=== PATIENT | female | born 1995 | race Caucasian/White ===

== ENCOUNTER 2020-10-10 21:23 | Emergency (ER) | payer OTHER, SELFPAY ==
[2020-10-10 21:26] VITALS: BP 137/82; PULSE 79; RESP 16; TEMP 36.2; O2SAT 100
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
[2020-10-10 22:51] VITALS: BP 124/68; PULSE 82; RESP 16; O2SAT 99
== END 2020-10-10 22:55 | disposition home or self-care (01) ==
PROVIDERS: Emergency Provider Emergency Medicine
DX: O99.891 Other specified diseases and conditions complicating pregnancy (principal); Z77.098 Contact with and (suspected) exposure to other hazardous, chiefly nonmedicinal, chemicals; Z3A.01 Less than 8 weeks gestation of pregnancy
CPT/HCPCS: 81025; 99283

== ENCOUNTER 2020-11-09 11:02 | Outpatient (CLI) | payer OTHER, SELFPAY ==
--- NOTE | ~2020-11-09 | US_ITS ---
EXAMINATION: US thyroid DATE: 11/09/2020 12:10 INDICATION: Nontoxic single thyroid nodule. TECHNIQUE: Multiple ultrasound images of the thyroid were obtained. COMPARISON: None. FINDINGS: The right thyroid lobe measures 5.0 x 1.4 x 1.5 cm. The left thyroid lobe measures 4.9 x 1.4 x 1.5 c m. There are nodules in the thyroid measuring up to 3 mm. IMPRESSION: 1. Small thyroid nodules, likely not clinically significant. No follow-up is needed. Reviewed, dictated and finalized at location A. IMPRESSION: 1. Small thyroid nodules, likely not clinically significant. No follow-up is ne eded.
== END 2020-11-09 11:03 | disposition home or self-care (01) ==
PROVIDERS: PCP Advanced Practice Midwife; Visit Provider Advanced Practice Midwife
DX: E04.1 Nontoxic single thyroid nodule (principal)
CPT/HCPCS: 76536

== ENCOUNTER 2021-05-17 09:54 | Observation (INO) | payer OTHER, SELFPAY ==
--- NOTE | ~2021-05-17 | US_ITS ---
EXAMINATION: US OB limited DATE: 05/17/2021 11:32 INDICATION: Leaking fluids during third trimester of TECHNIQUE: Real-time ultrasound of the pelvis was performed. The interpreting radiologist was not pre sent for the study. COMPARISON: None. FINDINGS: There is a single living fetus in vertex presentation. The placenta is anterior. heart rate is 137 beats per minute (bpm). The amniotic fluid index is 10.1 cm, which is normal (5th%-95%: 7.7-24.9 cm at 37 weeks estimated gestational age). IMPRESSION: 1. Single living fetus in vertex presentation with heart rate of 137 bpm. 2. Normal amniotic fluid index of 10.1 cm. Reviewed, dictated and finalized at location A. RAFT MAINTENANCE TECHNICIAN IMPRESSION: 1. Single living fetus in vertex presentation with heart rate of 137 bpm . 2. Normal amniotic fluid index of 10.1 cm.
--- NOTE | 2021-05-17 11:55 | PC.NURSE ---
1145- Spoke to Dr. Pulido, orders to discharge to home
--- NOTE | 2021-05-17 12:00 | OBADM ---
This patient, Hetal Abbott, admitted to the OB room Labor/Delivery/Recovery 106 for observation. Patient/family oriented to hospital policies and general routines including ID bracelet, bed and alarms, visiting hours, pain management, procedures, bathroom and other care routines, personal items, smoking policy, room service/diet, and visiting hours. Patient/Family are encouraged to report perceived risks to care and to ask questions if they do not understand what they are told or what they should do.
--- NOTE | 2021-05-19 18:16 | PM.OBTRLD ---
OB - Triage/Final Diagnosis Visit Information Comments/Additional reasons for admission: I have assessed the risk for this patient, Hetal Abbott, and determined that she would benefit from observation care. Final Diagnosis (1) Vaginal discharge during : Code(s): O26.899 - Other specified related conditions, unspecified trimester; N89.8 - Other specified noninflammatory disorders of vagina Status: Acute
== END 2021-05-17 11:55 | disposition home or self-care (01) ==
PROVIDERS: Admitting Provider Obstetrics & Gynecology; Visit Provider Obstetrics & Gynecology
DX: O26.899 Other specified pregnancy related conditions, unspecified trimester (principal); N89.8 Other specified noninflammatory disorders of vagina; Z3A.00 Weeks of gestation of pregnancy not specified
CPT/HCPCS: 76815; G0378; G0379

== ENCOUNTER 2021-05-19 17:52 | Observation (INO) | payer OTHER, SELFPAY ==
--- NOTE | ~2021-05-19 | US_ITS ---
EXAMINATION: US OB limited w BPP DATE: 05/19/2021 19:08 INDICATION: Amniotic fluid index assessment during third trimester TECHNIQUE: Real-time pelvic ultrasound was performed. The interpreting radiologist was not present fo r the study. COMPARISON: None. FINDINGS: There is a single living fetus in vertex presentation. The placenta is anterior. heart rate is 138 beats per minute (bpm). The amniotic fluid index is 11.5 cm which is normal Biophysical profile performed by the technologist: breathing (30 sec sustained breathing in 30 minutes): 2 out of 2 movement (3 gross body movements in 30 minutes): 2 out of 2 tone (one episode of iifqphh-nfouwgmmo-ymbkyzm limb movement): 2 out of 2 Amniotic fluid pocket (2 cm): 2 out of 2 Total score: 8 out of 8 IMPRESSION: 1. Single living fetus in vertex presentation. 2. Biophysical profile 8 out of 8. 3. Normal amniotic fluid index. Reviewed, dictated and finalized at location F. IED MATHEMATICIAN
[2021-05-19 19:35] VITALS: BP 110/65; PULSE 63
[2021-05-19 21:31] VITALS: BMI 27.1
--- NOTE | 2021-05-19 21:33 | OBADM ---
This patient, Hetal Abbott, admitted to the OB room Labor/Delivery/Recovery 105 for observation. Patient/family oriented to hospital policies and general routines including ID bracelet, bed and alarms, visiting hours, pain management, procedures, bathroom and other care routines, personal items, smoking policy, room service/diet, and visiting hours. Patient/Family are encouraged to report perceived risks to care and to ask questions if they do not understand what they are told or what they should do.
== END 2021-05-19 20:36 | disposition home or self-care (01) ==
PROVIDERS: Admitting Provider Obstetrics & Gynecology; Visit Provider Obstetrics & Gynecology
DX: O26.899 Other specified pregnancy related conditions, unspecified trimester (principal); N89.8 Other specified noninflammatory disorders of vagina; Z3A.00 Weeks of gestation of pregnancy not specified
CPT/HCPCS: 76815; 76819; G0378; G0379

== ENCOUNTER 2021-06-01 06:01 | Inpatient (IN) | payer OTHER, SELFPAY ==
[2021-06-01] VITALS (171 sets, daily range): BP systolic 84–121; BP diastolic 41–82; PULSE 51–187; RESP 16; TEMP 36.6–39.6; O2SAT 85–100; BMI 27.5
--- NOTE | 2021-06-01 06:01 | LDADM ---
This patient, Hetal Abbott, was admitted to Labor/Delivery/Recovery 105 on 06/01/21 at 06:01. Plans for labor, pain management and were discussed with patient. Patient/family oriented to hospital policies and general routines including ID bracelet, bed and alarms, visiting hours, pain management, procedures, bathroom and other care routines, personal items, smoking policy, room service/diet and guest tray routines, infant security routines, and visiting hours. Patient/Family are encouraged to report perceived risks to care and to ask questions if they do not understand what they are told or what they should do. See OBIX for further documentation.
[2021-06-01 06:49] LABS: Basophils Percent Auto 0.3 % (0.2-1.2); Eosinophils Absolute Auto 0.1 K/mm3 (0-0.3); Eosinophils Percent Auto 0.8 % (0-4.4); Hematocrit 32.5 % (37.0-47.0); Hemoglobin 11.2 g/dL (12.0-15.0); Immature Granulocyte Absolute 0.02 K/mm3 (0.00-0.031); Immature Granulocyte Percent A 0.3 % (0-0.5); Lymphocytes Absolute Auto 0.91 K/mm3 (0.9-3.2); Lymphocytes Percent Auto 14.5 % (18.3-44.2); Mean Corpuscular HGB Conc 34.5 g/dl (32-36); Mean Corpuscular Hemoglobin 34.8 pg (26-34); Mean Corpuscular Volume 100.9 fl (80-100); Mean Platelet Volume 10.4 fl (7.4-10.4); Monocytes Absolute Auto 0.5 K/mm3 (0.1-0.6); Monocytes Percent Auto 7.5 % (2.6-8.5); Neutrophils Absolute Auto 4.8 K/mm3 (1.3-6.7); Neutrophils Percent Auto 76.6 % (45.5-73.1); Platelet Count Result 106 k/mm3 (150-375); Red Blood Count 3.22 M/mm3 (4.2-5.4); Red Cell Distribution Width 13.3 % (11.5-14.5); White Blood Count 6.3 K/mm3 (4.5-10.0)
[2021-06-01] MEDS: OXYTOCIN 30 UNITS/NS 500 ML 30 UNITS/500 ML BAG IV CONT (06:49)
[2021-06-01] MEDS: LACTATED RINGERS 1,000 ML 125 ML IV CONT ×4 (06:50→15:25)
--- NOTE | 2021-06-01 07:57 | P.PNAN_ITS ---
Anes - Eval Pre Procedure Procedure: Labor epidural Date/Time: 06/01/21 07:57 Surgeon: Cuong Preop Diagnosis: Abd pain with contractions Pre Op Diagnosis: iol Patient Data Age: 25 Gender: F Height: 1.6 m Weight: 70.5 kg Last Vital Signs Pulse 78 06/01/21 07:45 BP 105/69 06/01/21 07:45 Allergies Allergy/AdvReac Type Severity Reaction Status Date / Time No Known Allergies Allergy Verified 05/31/21 12:45 Home Medications Medication Instructions Recorded Confirmed Type No Home Medications 10/10/20 05/31/21 History Laboratory Tests 06/01/21 06/01/21 06:40 06:40 WBC 6.3 K/mm3 K/mm3 (4.5-10.0) RBC 3.22 M/mm3 L M/mm3 (4.2-5.4) Hgb 11.2 g/dL L g/dL (12.0-15.0) Hct 32.5 % L % (37.0-47.0) MCV 100.9 fl H fl (80-100) MCH 34.8 pg H pg (26-34) MCHC 34.5 g/dl g/dl (32-36) RDW 13.3 % % (11.5-14.5) Plt Count 106 k/mm3 L k/mm3 (150-375) MPV 10.4 fl fl (7.4-10.4) Immature Gran % (Auto) 0.3 % % (0-0.5) Neut % (Auto) 76.6 % H % (45.5-73.1) Lymph % (Auto) 14.5 % L % (18.3-44.2) Monroe % (Auto) 7.5 % % (2.6-8.5) Eos % (Auto) 0.8 % % (0-4.4) Baso % (Auto) 0.3 % % (0.2-1.2) Lymph # (Auto) 0.91 K/mm3 K/mm3 (0.9-3.2) Monroe # (Auto) 0.5 K/mm3 K/mm3 (0.1-0.6) Eos # (Auto) 0.1 K/mm3 K/mm3 (0-0.3) Baso # (Auto) 0.0 K/mm3 K/mm3 (0.0-0.1) Abs Immat Gran (auto) 0.02 K/mm3 K/mm3 (0.00-0.031) Absolute Neuts (auto) 4.8 K/mm3 K/mm3 (1.3-6.7) Absolute Nucleated RBC 0.0 K/mm3 K/mm3 (0.0-0.012) Nucleated RBC % 0.0 % % (0.0-0.2) RPR Pending Patient hx anesthesia problems: none Family hx anesthesia problems: none Results Review: All pre-operative results and documents have been reviewed as part of the pre-operative evaluation. [facility] Past Medical History Medical History Healthy female adult Overweight (BMI 25.0-29.9) Surgical History Surgical History No pertinent past surgical history Family History Family History Other No pertinent family history Social History Social History Smoking status: Current some day smoker Tobacco type: e-cigarettes/vaping Second hand tobacco smoke exposure: Yes Alcohol intake: never Substance use: never Gender identity (if verbalized by the patient): Female Sexual Orientation (if Verbalized by the Patient): Straight or Heterosexual Spiritual care concerns: No Exam Day of Procedure 06/01/21 07:57 Patient weight: overweight Airway: Mallampati scale class II Neurological: alert
[2021-06-01 14:25] LABS: Rapid Plasma Reagin Non-Reactive (NonReactive)
[2021-06-01] MEDS: ePHEDrine sulfate INJ 50 MG/ML AMPUL IV PUSH ×2 (15:20→15:25)
[2021-06-01] MEDS: ACETAMINOPHEN 500 MG TABLET 1000 MG PO (17:51)
[2021-06-01] MEDS: ONDANSETRON INJ 4 MG/2 ML VIAL IV PUSH (18:23)
[2021-06-01] MEDS: OXYTOCIN 30 UNITS/NS 500 ML 30 UNITS/500 ML BAG 125 UNITS IV CONT (20:14)
--- NOTE | 2021-06-01 20:14 | WPDOBADMIT ---
Obstetrics - Admit Note Admission Note: record reviewed. No pertinent additions to the history and/or any subsequent changes in the physical findings that are not consistent with the expected course of the were found. Additions to the history and/or subsequent changes in the physical findings follow. None.
--- NOTE | 2021-06-01 20:15 | WPDHPUPDATE1 ---
History and Physical Update Update Date/Time: 06/01/21 20:15 History and Physical has been reviewed, including an updated exam of the patient. There are NO changes in the patient's condition. Risks, benefits, and alternatives have been discussed and questions answered. Patient agrees to proceed with procedure.
--- NOTE | 2021-06-01 20:15 | PM.OP ---
Procedure Note - Brief Procedure Note - Brief Date of procedure: 06/01/21 Pre-op diagnosis: iol Surgeon: Camden Hutchins MD
--- NOTE | 2021-06-01 20:15 | PM.OBPRVD ---
OB - Delivery Note Procedure Intrapartal events: Febrile Route of delivery: Episiotomy description: None Laceration Description: None Specimen: Yes Quantitative Blood Loss (ml): 200 Anesthesia type: Epidural Disposition: floor Narrative: Patient prepped and draped in usual manner for this procedure. Maternal expulsive efforts readily delivered vertex and the rest of baby without difficulty. Cord was clamped and cut placenta delivered spontaneously. Cervix vagina vulva were inspected with no lacerations or tears. Uterus was well contracted. [place] Baby Weeks of gestation at delivery: 39 gender: Female Weight (pounds): 6 Weight (ounces): 7 Placenta delivery description: Spontaneous score one minute: 8 score five minutes: 9 AMG Delivery Billing Delivery Delivery: Delivery Charge
[2021-06-01] MEDS: IBUPROFEN 600 MG TABLET PO (20:40)
[2021-06-01] MEDS: GENTAMICIN SULFATE INJ 355 MG in DEXTROSE 5% 100 ML 100 MG IVPB (21:00)
[2021-06-01] MEDS: CLINDAMYCIN 900 MG/D5W 50 ML 900 MG/50 ML PIGGYBACK 50 MG IVPB (22:35)
--- NOTE | 2021-06-01 23:25 | OBPPTRN ---
Patient transferred to post room #291 via W/C. Oriented to unit, room, information board, rooming in, admission packet and security measures. Patient verbalizes understanding.
[2021-06-02] MEDS: IBUPROFEN 600 MG TABLET PO ×3 (02:27→19:08)
[2021-06-02 04:50] VITALS: BP 105/65; PULSE 62; RESP 16; TEMP 37.1
[2021-06-02 05:21] LABS: Hematocrit 31.3 % (37.0-47.0); Hemoglobin 10.9 g/dL (12.0-15.0); Mean Corpuscular HGB Conc 34.8 g/dl (32-36); Mean Corpuscular Hemoglobin 35.2 pg (26-34); Mean Platelet Volume 10.6 fl (7.4-10.4); Platelet Count Result 83 k/mm3 (150-375); Red Cell Distribution Width 13.2 % (11.5-14.5); White Blood Count 14.1 K/mm3 (4.5-10.0)
[2021-06-02] MEDS: CLINDAMYCIN 900 MG/D5W 50 ML 900 MG/50 ML PIGGYBACK 50 MG IVPB (05:33)
[2021-06-02 05:40] LABS: Band Neutrophils Percent 10 % (0-6); Monocytes Absolute Manual 0.42 K/mm3 (0.1-0.90); Monocytes Percent Manual 3 % (3-9); Neutrophils Absolute Manual 12.97 K/mm3 (1.7-7.2); Neutrophils Percent Manual 82 % (46-73); Platelet Estimate Decreased (Adequate); Total Cells Counted 100
[2021-06-02 06:20] VITALS: BP 97/52; PULSE 65; RESP 18; TEMP 36.3
--- NOTE | 2021-06-02 07:28 | P.DS_ITS ---
DS: Admitting Diagnosis Discharge Date 06/03/2021 Admitting Diagnosis OB - DS: Summary OB Procedures : None OB Procedures Intrapartum: Spontaneous Vag Delivery OB Procedures: : Antibiotics Time Spent with Patient Time attestation: Total time spent providing and/or coordinating discharge ser vices: DS: Data Data Completed and Pending Pending studies at discharge: Pending at discharge 06/01/21 19:48 Surgical [PTH] Routine Labs on day of discharge: Labs from last 24 hours 06/02/21 06/01/21 06/01/21 05:00 06:40 06:40 WBC 14.1 H RBC 3.10 L Hgb 10.9 L Hct 31.3 L MCV 101.0 H MCH 35.2 H MCHC 34.8 RDW 13.2 Plt Count 83 L MPV 10.6 H Immature Gran % (Auto) Not Reportable Neut % (Auto) Not Reportable Lymph % (Auto) Not Reportable Summers % (Auto) Not Reportable Eos % (Auto) Not Reportable Baso % (Auto) Not Reportable Lymph # (Auto) Not Reportable Summers # (Auto) Not Reportable Eos # (Auto) Not Reportable Baso # (Auto) Not Reportable Abs Immat Gran (auto) Not Reportable Absolute Neuts (auto) Not Reportable Absolute Nucleated RBC Not Reportable Total Counted 100 Neutrophils % (Manual) 82 H Band Neutrophils % 10 H Lymphocytes % (Manual) 5.0 L Monocytes % (Manual) 3 Nucleated RBC % Not Reportable Abs Neuts (Manual) 12.97 H Abs Lymphs (Manual) 0.70 L Abs Monocytes (Manual) 0.42 Platelet Estimate Decreased RPR Non-reactive Blood Type O Positive Antibody Screen Negative Discharge Plan Discharge Discharging Clinician: Camden Hutchins Patient Disposition: Home, Self-Care Activity: as tolerated Diet: as tolerated Patient Instructions: Antibiotic Form Stand Alone Forms: General Discharge Information Follow-up/Referrals: Camden Hutchins MD [Physician] - 3 Weeks Discharge Medications: New ibuprofen 600 mg Tablet 600 mg PO Q6H PRN (Reason: Cramping) Qty: 30 RF: 0 No Action No Home Medications RF: 0 Date of admission: 06/01/21 06:01 Primary Care Provider: PHYSICIAN,TRANSFUSION AIDE Admitting Provider: Camden Hutchins Attending physician on admission: Camden Hutchins Condition: Stable
[2021-06-02 12:17] VITALS: BP 97/53; PULSE 60; RESP 16; TEMP 36.8; O2SAT 100
[2021-06-02 16:10] VITALS: BP 103/60; PULSE 70; RESP 20; TEMP 36.9
[2021-06-02] MEDS: ACETAMINOPHEN 325 MG TABLET 650 MG PO (19:10)
[2021-06-02 19:11] VITALS: BP 91/50; PULSE 66; RESP 16; TEMP 36.4
[2021-06-03] MEDS: IBUPROFEN 600 MG TABLET PO (05:33)
[2021-06-03 07:20] VITALS: BP 102/54; PULSE 62; RESP 16; TEMP 37.5; O2SAT 99
--- NOTE | 2021-06-03 08:50 | PC.NURSE ---
Patient instructed on viewing the discharge video Mother & Baby Care, The First Two Weeks . Patient was given the opportunity and encouraged to ask questions. Patient verbalized understanding of information shared and has been given the mother/baby guide for home reference.
--- NOTE | 2021-06-06 08:40 | PM.OBDSVD ---
DS: Admitting Diagnosis Discharge Date 06/03/21 Admitting Diagnosis OB - DS: Summary OB Procedures : None OB Procedures Intrapartum: Spontaneous Vag Delivery OB Procedures: : None Time Spent with Patient Time attestation: Total time spent providing and/or coordinating discharge services: DS: Data Data Completed and Pending Pending studies at discharge: Pending at discharge 06/01/21 19:48 Surgical [PTH] Routine Discharge Plan Discharge Discharging Clinician: Camden Hutchins Patient Disposition: Home, Self-Care Activity: as tolerated Diet: as tolerated Discharge Instructions: Education: Mom and Baby Guide Given to: Mother Follow-Up: Call your delivering provider's office for an appointment to be seen in: 3 weeks Mom and baby should come to the [facility] for the follow-up appointment. Appointment Date/Time: June 06, 2021 at 11:00 am What to expect at your follow-up visit: Physical Assessment Call [phone] if you are unable to keep your appointment time. BREAST CARE: * Wear a snug supportive bra. * For engorgement discomfort: Bottle Feeding: * May apply ice packs EPISIOTOMY/PERINEAL CARE: * Until bleeding stops, use your leola bottle after urinating * Change your pad frequently throughout the day * No tub baths until seen by your physician - You may shower ACTIVITY: * Rest as much as possible. * Do not exercise or lift anything heavier than your baby (such as laundry or other children.) * Avoid stairs or driving as much as possible. * Do not put anything into the vagina. No douching, tampons, or sexual activity until seen by physician. NOTIFY PHYSICIAN IF YOU HAVE ANY QUESTIONS OR IF ANY OF THE FOLLOWING SYMPTOMS OCCUR: * If your perineum becomes red, swollen, or more painful than what you have experienced in the hospital. * If your vaginal bleeding becomes foul smelling. * If your vaginal bleeding becomes more heavy than a period or if your bleeding changes from pink to bright red. However, you may pass an occasional walnut-sized clot once or twice for the first week . * If you experience a sharp, shooting pain in you calves. * If you discover a hard, reddened area on your breast or if you experience flu-like symptoms. DIET: * Eat regular, well-balanced meals. * Drink plenty of fluids daily. If , drink to thirst. Stand Alone Forms: General Discharge Information Follow-up/Referrals: Camden Hutchins MD [Physician] - 3 Weeks Discharge Medications: New ibuprofen 600 mg Tablet 600 mg PO Q6H PRN (Reason: Cramping) Qty: 30 RF: 0 Date of admission: 06/01/21 06:01 Primary Care Provider: PHYSICIAN,REAL ESTATE ACCOUNT EXECUTIVE Admitting Provider: Camden Hutchins Attending physician on admission: Camden Hutchins Condition: Stable
[2021-06-06 11:12] VITALS: BP 107/70; PULSE 68; RESP 20; TEMP 36.9; O2SAT 100
== END 2021-06-03 17:00 | disposition home or self-care (01) | DRG 807 ==
LOC: ANHLDR 07:36 → ANHOB2 23:58
PROVIDERS: Admitting Provider Obstetrics & Gynecology; Visit Provider Obstetrics & Gynecology
DX: O75.2 Pyrexia during labor, not elsewhere classified (principal); Z37.0 Single live birth; O99.334 Smoking (tobacco) complicating childbirth; F17.210 Nicotine dependence, cigarettes, uncomplicated; O76 Abnormality in fetal heart rate and rhythm complicating labor and delivery; Z3A.39 39 weeks gestation of pregnancy
CPT/HCPCS: 36415; 85025; 86592; 86850; 86900; 86901; 88307; A9270; J1580; J2405; J2590; J2795; J7120

== ENCOUNTER 2022-02-22 18:42 | Emergency (ER) | payer OTHER, SELFPAY ==
[2022-02-22 19:26] VITALS: BP 135/88; PULSE 83; RESP 18; TEMP 36.9; O2SAT 100
--- NOTE | 2022-02-22 21:12 | PC.NURSE ---
No answer to name in waiting room
--- NOTE | 2022-02-22 21:29 | PC.NURSE ---
Called name in waiting room. No answer
== END 2022-02-22 21:12 | disposition left against medical advice (07) ==
DX: R51.9 Headache, unspecified (principal)
CPT/HCPCS: 99199

== ENCOUNTER 2024-05-17 20:31 | Emergency (ER) | payer SELFPAY ==
[2024-05-17 20:36] VITALS: BP 112/81; PULSE 61; RESP 17; TEMP 36.4; O2SAT 100
--- NOTE | 2024-05-17 20:54 | ED.WOUNDLAC ---
HPI - Wound/Laceration General Chief Complaint: Wound/Laceration Stated Complaint: LAC TO L RING FINGER Time Seen by Provider: 05/17/24 20:40 Source: patient Mode of arrival: ambulatory Limitations: no limitations History of Present Illness HPI narrative: This is a 28-year-old female who presents to the ED for chief complaint of left hand injury that occurred just prior to arrival. She complains of laceration to the anterior side of the left proximal ring finger. States that this occurred while trying to change out a broken toilet and got the finger caught on a sharp broken piece. Denies any further injury. Denies numbness or weakness. Related Data Allergies Allergy/AdvReac Type Severity Reaction Status Date / Time No Known Allergies Allergy Verified 05/17/24 20:44 Review of Systems Review of Systems: All systems as dictated in [facility] Past Medical History Medical History Healthy female adult Overweight (BMI 25.0-29.9) Surgical History Surgical History No pertinent past surgical history Family History Family History Other No pertinent family history Social History Social History (Updated 02/06/23 @ 09:58 by CLINTON Brown) Smoking status: Current some day smoker Tobacco type: e-cigarettes/vaping Second hand tobacco smoke exposure: Yes Alcohol intake: never Substance use: never Substance use type: does not use Lack of Transportation: No Lack of Food: Never True Current Housing: I Have Housing Concerned About Future Housing: No Difficulty Paying Gas/Electric Bills: No Difficulty Paying for Meds: No Currently Unemployed: No Education: High School Diploma/GED Difficulty w/ Childcare or Family Care: No Living arrangements: other Additional living arrangements comments: Occupation/Education: other 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 HEAD: Normocephalic, atraumatic. EYES: PERRLA and EOMI. ENT: Nares clear, no rhinorrhea or epistaxis. Mucous membranes moist. Oropharynx without tonsillar hypertrophy exudate or other lesions. NECK: Supple. No adenopathy or masses. CHEST: No respiratory distress. Clear to auscultation. No wheezes rales or rhonchi HEART: Regular rate and rhythm. No murmur heard. Normal peripheral pulses. ABDOMEN: Soft, nontender, nondistended, normal active bowel sounds. MSK: Normal range of motion. No edema. SKIN: 2 cm flap laceration to the volar aspect of the proximal left ring finger. Bleeding controlled on arrival NEURO: Alert and oriented x4. No focal deficits. PSYCH: Normal mood and affect. Course Vital Signs Vital signs: Vital Signs Temperature 97.6 F 05/17/24 20:36 Pulse Rate 61 05/17/24 20:36 Respiratory Rate 17 05/17/24 20:36 Blood Pressure 112/81 05/17/24 20:36 Pulse Oximetry 100 05/17/24 20:36 Oxygen Delivery Room Air 05/17/24 20:36 Temperature 97.6 F 05/17/24 20:36 Pulse Rate 61 05/17/24 20:36 Respiratory Rate 17 05/17/24 20:36 Blood Pressure 112/81 05/17/24 20:36 Pulse Oximetry 100 05/17/24 20:36 Oxygen Delivery Room Air 05/17/24 20:36 Procedures Laceration Laceration 1: Date: 05/17/24 Time: 21:27 Site: hand Side (If applicable): right Size (cm): 2 Description: flap Depth: simple, single layer Local Anesthetic: lidocaine 1% Amount of anesthesia used (mL): 2 Pre-repair: wound explored, irrigated extensively and deep structures intact ====== Skin Level ====== Skin layer closed with: nylon Size (cm): 5-0 Number of sutures: 4 Technique: simple, interrupted ====== Subcutaneous Layer ====== ====== Muscle Layer ====== ====== Tendon Layer ====== Dressing: Nonadherent dressing and Kerlix MDM - Wound/Laceration MDM Narrative Medical decision making narrative: This is a 28 yo female who presents to the ED for chief complaint of laceration to the left ring finger. Vitals are normal. Exam shows 2 cm flap laceration to the anterior aspect of the left ring finger proximally. Bleeding controlled on arrival. The wound was well cleansed irrigated at urgent care and here in the ED. Her tetanus status is up-to-date. Wound was closed primarily with sutures. Laceration instructions given. Patient will be discharged in stable condition. Supportive measures discussed and return precautions given. Patient is understanding and agreeable with plan for discharge with PCP follow-up. Differential Diagnosis Differential diagnosis: Likely laceration, abrasion and avulsion of skin Discharge Plan Discharge Clinical Impression: Laceration Patient Disposition: Home, Self-Care Condition: Stable Instructions: Antibiotic Form, Care For Your Stitches (ED) Additional Instructions: Keep wound clean and dry. Do not soak, take baths, or swim until wound is completely healed. If any signs of infection such as redness, swelling, increasing pain, drainage of purulent discharge, streaks up your extremity develop, seek medical attention immediately. Followup with your primary care provider in [7] days for suture removal. Patient Language: Malawian Prescriptions: No Action norgestimate-ethinyl estradiol [Sprintec (28)] 0.25-35 mg-mcg tablet 1 tablet PO DAILY Qty: 84 0RF Follow-up/Referrals: PHYSICIAN,METAL FABRICATING SUPERVISOR [Primary Care Provider] - Time of Disposition: 21:32
== END 2024-05-17 21:46 | disposition home or self-care (01) ==
PROVIDERS: Emergency Provider Physician Assistant
DX: S61.215A Laceration without foreign body of left ring finger without damage to nail, initial encounter (principal); F17.290 Nicotine dependence, other tobacco product, uncomplicated; W26.8XXA Contact with other sharp object(s), not elsewhere classified, initial encounter
CPT/HCPCS: 12001; 99282; J2003

== ENCOUNTER 2025-01-23 18:21 | Emergency (ER) | payer OTHER, SELFPAY ==
--- OUTSIDE RECORDS SUMMARY | 2014-05-17 18:00 | XMS_ITS | Continuity of Care Document ---
Author Organization [facility] Address [address] [place] [address] Phone Care Team Providers Care Body Mechanic Name Role Phone Unavailable Unavailable Unavailable Advance Directives Directive Yes / No Effective Date File Name No Information Encounters Encounter Description Practice Location Reason(s) For Visit Diagnoses Date Provider Providers Copied on Encounter [facility], [address], [place], [place], [id number], [place] tel:[phone] [facility] OUTPATIENT No Information No Information Referring Provider: REFERRAL SELF. Family History Family Member Type Diagnosis Age At Onset No Information Payers Payer name Insurance type Covered libertarian ID Authoriza timaximo(s) [facility] IN[facility] [id number] Social History Type Description Quantity Date Captured Comments Sex Female Smoking Status No Information Chief Complaint And Reason For Visit No Information History Of Present Illness Encounter Date Complaint History Of Prese nt Illness No Information Instructions Date Instruction Additional Infor mation No Information Assessments Type Assessment Date No Information
--- NOTE | ~2025-01-23 | CT_ITS ---
EXAMINATION: CT lumbar spine wo con, CT pelvis wo con DATE: 01/23/2025 21:52 INDICATION: TECHNIQUE: Computed tomography (CT) of the lumbar spine and pelvis was performed without intravenous contrast. The dose-length product was 162.36 (accession [id number]), 144.14 (accession [id number]) mGy-cm. COMPARISON: None FINDINGS: Lumbar spine: Normal lumbar lordosis. No fracture, subluxation or dislocation. No significant disc narrowing. There is an atrophic left kidney containing multiple calcifications. No other paraspinal soft tissue abnormality. Pelvis: No acute fracture. IMPRESSION: 1. No acute abnormality of the lumbar spine or pelvis. Reviewed, dictated and finalized at location O. IMPRESSION: 1. No acute abnormality of the lumbar spine or pelvis.
--- OUTSIDE RECORDS SUMMARY | 2025-01-23 18:23 | XMS_ITS | Clinical Summary ---
Author Organization [facility] Address [address] [place] [address] Care Team Providers Care Lockstitch Machine Operator Name Role Phone No, Physician Primary Care Provider [phone] Allergies No known active allergies Medications 25/IRON FUM/FOLIC/DHA (-1 ORAL) Take by mouth daily. Active docusate sodium (COLACE) 100 mg capsuleIndicati ons:constipatio n Take 1 capsule (100 mg total) by mouth 2 (two) times a day Active ibuprofen (ADVIL,MOTRIN) 600 mg tabletIndicatio ns:Pain Take 1 tablet (600 mg total) by mouth every 6 (six) hours as needed for pain. 30 tablet 2 09/07/2017 Active Active Problems No known active problems Immunizations Immunization Administration Dates Next Due Influenza, Trivalent, IM (MDV) 03/03/2014 Tdap 03/23/2014 Surgical History Surgery Date Site/Laterality Comments OTHER SURGICAL HISTORY 2014 : 24 hr labor Medical History Medical History Date Comments Hx Other Medical ; Comm ents: Bilateral hydronephrosis. Spontaneous labor. Pushed x 1 hr. . 1' ML lac.; Outcome: 40W1D week 7lb(s) 5 oz Male Family History Medical History Relation Name Comments Other Father Alive and well; Melanoma Maternal Grandmother Melanom a; Other Mother Alive and well; Other Other 1 Nikko Alive and well; Other Other 2 No family histo ry of breast cancer; Other Sister Sofia Alive and well; Relation Name Status Comments Father Alive Maternal Grandmother Mother Alive Other 1 Nikko Alive Other 2 Sister Sofia Alive Social History Tobacco Use Types Packs/Day Years Used Date Smoking Tobacco: Former Smokeless Tobacco: Never Tobacco Cessation:Counseling Given: Not Answered Comments:Smoking History Packs/day: 0.5 Packs Alcohol Use Standard Drinks/Week Comments No 0 (1 standard drink = 0.6 oz pur e alcohol) Comments No Sex and Gender Information Value Date Recorded Sex Assigned at Not on file Legal Sex Female 12:32 PM TROUT FARMER Gender Identity Female 05/17/2024 6:21 PM TROUT FARMER Sexual Orientation Straight 05/17/2024 6: 21 PM TROUT FARMER Obstetrics History Para Term AB IAB SAB Ectopic Multiple Livin g Live Births 2 2 2 0 2 2 Date Outcome GA Total Labor Labor/2nd/3rd Weight Sex Type Anes PTL Radha A1 A5 Name Clin Term M Vag-S pont Epidur al N Livin g Complications:None 2017 Term 38w 6d 5h 20m 4h 24m/0h 50m/0h 06m 3.26 kg (7 lb 3 oz) F Vag-S pont Epidur al N Livin g 9 9 ELSI ,GIRL KIM campuzano, Lilian Lorenzo MD Complications:None Delivery Location:[facility] Last Filed Vital Signs Vital Sign Reading Time Taken Comments Blood Pressure 100/68 05/17/2024 7:33 PM TROUT FARMER Pulse 86 05/17/2024 7:33 PM TROUT FARMER Temperature 36.8 C (98.2 F) 05/17/2024 7:33 PM TROUT FARMER Respiratory Rate 18 05/17/2024 7:33 PM TROUT FARMER Oxygen Saturation 98% 05/17/2024 7:33 PM TROUT FARMER Inhaled Oxygen Concentration - - Weight 54.4 kg (120 lb) 05/17/2024 7:33 PM TROUT FARMER Height 160 cm (5' 3) 05/17/2024 7:33 PM TROUT FARMER Body Mass Index 21.26 05/17/2024 7:33 PM TROUT FARMER Plan of Treatment Health Maintenance Due Date Last Done Comments Cervical Cancer Screening 1993 Depression Screening 1993 Varicella Vaccines (1 of 2 - 13+ 2-dose series) 2006 Hepatitis B Screening 2011 Regular Well Visit/Exam 18-64 2011 HPV Vaccines (1 - 3-dose SCD M series) 2020 Influenza Vaccine (#1) 2025 , 02/21/2017, 03/03/2014 DTaP/Tdap/Td Vaccine (4 - Td or Tdap) 03/15/2031 03/15/2021, 07/04/2017, 03/23/2014 Hepatitis C Screening Completed 11/03/2013 Pneumococcal vaccine <65 Aged Out No longer eligible based on patient's age to complete this topic Procedures Procedure Name Priority Date/Time Associated Diagnosis Comments SERUM HEPATITIS C AB Routine 11/03/2013 10:26 AM CDT from Last 3 Months or Most Recently Relevant to Health Maintenance Results * Serum Hepatitis C ab (11/03/2013 10:26 AM CDT) HCV ab Negative Negative HISTORICAL RESULTS Serum 11/03/2013 10:2 6 AM CDT Narrative HISTORICAL RESULTS - 11/03/2013 2:49 PM CDT #92157 [facility] DOA, Varicella IgG, Obstetric Panel us Aury Ny MD LAB BLOOD ORDERABLES Final Result HISTORICAL RESULTS from Last 3 Months or Most Recently Relevant to Health Maintenance Advance Directives For more information, please contact: [phone] * Full Code (Latest Code Status on File) Date Activated Date Inactivated Comments 09/06/2017 11:24 AM 09/08/2017 3:22 PM Full CPR in case of cardiopulmonary arrest Care Teams Lockstitch Machine Operator Relationship Specialty Start Date End Date No, Physician PCP - General 09/06/17
[2025-01-23 18:42] VITALS: BP 117/79; PULSE 57; RESP 20; TEMP 36.8; O2SAT 100
--- NOTE | 2025-01-23 21:26 | ED.FALL ---
HPI - Fall General Chief Complaint: Fall Stated Complaint: tailbone pain, fall Time Seen by Provider: 01/23/25 21:01 History of Present Illness HPI Narrative: Patient is a 29-year-old female who presents to the ER after sustaining a fall. She reports she was at the park with her family when her dog took off and she fell backwards over his leash. Patient reports she landed on her lower back. She denies any loss of continence, saddle anesthesia, numbness and tingling, urinary symptoms or decreased range of motion. Patient endorses increased pain with movement. She denies any medical history relevant to this ER visit. Related Data Allergies Allergy/AdvReac Type Severity Reaction Status Date / Time No Known Allergies Allergy Verified 01/23/25 18:22 Review of Systems Review of Systems: All systems reviewed & are unremarkable except as noted in HPI and below PMFSH Past Medical History Medical History Overweight (BMI 25.0-29.9) Healthy female adult Surgical History Surgical History No pertinent past surgical history Family History Family History Other No pertinent family history Social History Social History Smoking status: Current some day smoker Tobacco type: e-cigarettes/vaping Second hand tobacco smoke exposure: Yes Alcohol intake: never Substance use: never Substance use type: does not use Do You Feel Safe in your Home?: Yes Lack of Transportation: No Lack of Food: Never True Current Housing: Decline to Answer Concerned About Future Housing: Decline to Answer Difficulty Paying Gas/Electric Bills: Decline to Answer Difficulty Paying for Meds: Decline to Answer Currently Unemployed: Decline to Answer Education: Decline to Answer Difficulty w/ Childcare or Family Care: Decline to Answer Living arrangements: other Additional living arrangements comments: Occupation/Education: other 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 HEAD: Normocephalic, atraumatic. NECK: Supple. No adenopathy, no masses. RESPIRATORY: Airway patent, respirations nonlabored. Clear to auscultation bilaterally, no rales, rhonchi, wheezing. CARDIOVASCULAR: Regular rate and rhythm without murmurs, rubs, or gallops. Peripheral pulses 2+ and equal bilaterally. ABDOMINAL: Soft, nontender, nondistended, no hepatosplenomegaly. Normoactive BS. MUSCULOSKELETAL: Moves all extremities. Strength/ROM intact without gross deformities. + pain with palpation lower spine SKIN: Warm, dry, normal color. No rashes. NEURO: A&O X3. Speech clear. Cranial nerves II-XII intact. No ataxic movements. PSYCHIATRIC: Appropriate mood and affect. Normal interaction. Course Vital Signs Vital signs: Vital Signs Temperature 36.8 C 01/23/25 18:42 Pulse Rate 57 L 01/23/25 18:42 Respiratory Rate 20 01/23/25 18:42 Blood Pressure 117/79 01/23/25 18:42 Pulse Oximetry 100 01/23/25 18:42 Oxygen Delivery Room Air 01/23/25 18:42 Temperature 36.8 C 01/23/25 18:42 Pulse Rate 83 01/23/25 22:32 Respiratory Rate 16 01/23/25 22:32 Blood Pressure 105/64 01/23/25 22:32 Pulse Oximetry 100 01/23/25 22:32 Oxygen Delivery Room Air 01/23/25 18:42 MDM - Fall MDM Narrative Medical decision making narrative: Patient is a 29-year-old female who presents to the ER after sustaining a fall. She reports she was at the park with her family when her dog took off and she fell backwards over his leash. Patient reports she landed on her lower back. She denies any loss of continence, saddle anesthesia, numbness and tingling, urinary symptoms or decreased range of motion. Patient endorses increased pain with movement. She denies any medical history relevant to this ER visit. Labs Ordered: UA Imaging Ordered: CT pelvis, CT lumbar Medications Ordered: [place] p.o., Toradol 60 mg IM Results: Patient's CT scans indicate Lumbar spine: Normal lumbar lordosis. No fracture, subluxation or dislocation. No significant disc narrowing. There is an atrophic left kidney containing multiple calcifications. No other paraspinal soft tissue abnormality. Diagnosis: Tailbone injury, atrophic kidney, urinary tract infection Consults: nephrology (outpatient) Patient Education/Shared MDM: Results of lab work and imaging shared with patient. She endorses mild improvement of symptoms following medication administration. Patient strongly advised to maintain hydration status upon discharge and follow-up with nephrology starting her atrophic kidney. She will be discharged home with a prescription for Bactrim and lidocaine patches. Patient advised to take Tylenol and ibuprofen as needed for pain control. Strict return precautions provided. Patient verbalized understanding and is in agreement with plan. Vital signs stable at time of discharge. All questions answered. Differential Diagnosis Differential diagnosis: Likely compression fracture and other (Lumbar fracture, urinary tract infection, pelvis fracture) Lab Data Attestation: I reviewed the patient's lab results. Labs: Lab Results 01/23/25 01/23/25 Range/Units 21:38 21:41 Urine Color Yellow (Yellow) Urine Appearance Sl cloudy (Clear) Urine pH 7.0 (5.0-9.0) Ur Specific [place] 1.005 (1.001-1.035) Urine Protein Negative (Negative) mg/dL Urine Glucose (UA) Negative (Negative) mg/dL Urine Ketones Negative (Negative) mg/dL Ur Blood (Man) 2+ H (Negative) Urine Nitrate Negative (Negative) Urine Bilirubin Negative (Negative) Urine Urobilinogen 0.2 (<2.0) mg/dL Add Ur Microanalysis Reviewed Leukocyte Esterase Rfl 3+ H (Negative) ELI/UL Urine RBC 0-2 (0-2) /hpf Urine WBC 21-50 H (0-3) /hpf Ur Squamous Epith Cells Few (Few) /hpf Urine Bacteria 2+ H /hpf Urine Casts 0-2 POC Urine HCG, Qual Negative (Negative) Urine Test Negative Imaging Data Attestation: I personally reviewed and interpreted this imaging study as follows: Radiologist's impression: Impressions Lumbar Spine CT 01/23/25 22:05 IMPRESSION: 1. No acute abnormality of the lumbar spine or pelvis. Pelvis CT 01/23/25 22:05 IMPRESSION: 1. No acute abnormality of the lumbar spine or pelvis. Discharge Plan Discharge Clinical Impression: Injury of lower back, Urinary tract infection, Atrophy of left kidney Patient Disposition: Home Condition: Stable Instructions: Antibiotic Form, Urinary Tract Infection in Women (ED) Additional Instructions: Please return to the ER with any worsening symptoms. Follow-up with primary care provider as needed. Please follow-up with Nephrology regarding your atrophic kidney. Take all medications as prescribed, including regularly scheduled medications. Complete your full dose of antibiotics. Remember to drink lots of water. Patient Language: Tanzanian Prescriptions: New sulfamethoxazole-trimethoprim [Bactrim DS] 800-160 mg tablet 1 tablet PO Q12H 5 Days Qty: 10 0RF lidocaine 5 % adhesive patch,medicated 2 patch topical DAILY Qty: 30 0RF Rx Instructions: leave on most painful area for up to 12 hrs No Action norgestimate-ethinyl estradiol [Sprintec (28)] 0.25-0.035 mg tablet 1 tablet PO DAILY Qty: 84 3RF Follow-up/Referrals: David Andersen MD [Physician, Nephrology] Referral Note: nephrology Suresh Sen MD [Physician, Family Practice] Referral Note: primary care provider PHYSICIAN,INSPECTOR FLOOR [Primary Care Provider, Internal Medicine] Stand Alone Forms: Work/School Release IP Time of Disposition: 22:52
[2025-01-23] MEDS: HYDROcodone/acetaminophen (*CRX) 5-325 MG TABLET 1 TAB PO (21:39)
[2025-01-23] MEDS: KETOROLAC (*BKC) 60 MG/2 ML VIAL IM (21:40)
[2025-01-23 21:43] LABS: BEDSIDEPREGUCG Negative (Negative)
[2025-01-23 21:51] LABS: Pregnancy On Board Control Positive
[2025-01-23 21:59] LABS: Add Urine Microscopic? YES; Glucose Urine UA Negative (Negative); Leukocyte Esterase Ur 3+ LEU/UL (Negative); Need Manual Microscopic Reviewed; Nitrate Urine Negative (Negative); Non Pathogenic Casts 0-2; Specific Grav Ur 1.005 (1.001-1.035)
[2025-01-23 22:00] LABS: Appearance Urine Sl Cloudy (Clear)
[2025-01-23 22:32] VITALS: BP 105/64; PULSE 83; RESP 16; O2SAT 100
[2025-01-23] MEDS: SULFAMETHOXAZOLE/TRIMETHOPRIM 800/160 MG DS TABLET 2 TAB PO (23:17)
[2025-01-23 23:26] VITALS: BP 119/82; PULSE 77; RESP 18; O2SAT 100
== END 2025-01-23 23:27 | disposition home or self-care (01) ==
PROVIDERS: Emergency Medicine; Emergency Provider Registered Nurse
DX: S39.92XA Unspecified injury of lower back, initial encounter (principal); N39.0 Urinary tract infection, site not specified; N26.1 Atrophy of kidney (terminal); F17.290 Nicotine dependence, other tobacco product, uncomplicated; Z79.3 Long term (current) use of hormonal contraceptives; W18.39XA Other fall on same level, initial encounter; Y93.K1 Activity, walking an animal
CPT/HCPCS: 72131; 72192; 81001; 81025; 87086; 87186; 96372; 99284; A9270; J1885

== ENCOUNTER 2025-03-13 12:51 | Outpatient (CLI) | payer OTHER, SELFPAY ==
--- NOTE | ~2025-03-13 | US_ITS ---
US renal BI 03/13/2025 14:13 Procedure: Realtime transabdominal ultrasound of the kidneys and bladder. Indication: Left renal atrophy Comparison: No prior studies for comparison. Findings: There is moderate right hydronephrosis. There are multiple echogenic foci in the right kidney, suspicious for renal stones versus medullary nephrocalcinosis. There are multiple echogenic foci in the left kidney, suspicious for renal stones versus medullary nephrocalcinosis. Bladder is unremarkable. Impression: 1: Multiple bilateral centrally located renal echogenic foci which may represent renal stones or medullary nephrocalcinosis. Moderate right hydronephrosis. Reviewed, dictated and finalized at location O. Impression: 1: Multiple bilateral centrally located renal echogenic foci which may represen t renal stones or medullary nephrocalcinosis. Moderate right hydronephrosis.
--- OUTSIDE RECORDS SUMMARY | 2025-03-13 12:55 | XMS_ITS | Clinical Summary ---
Author Organization [facility] Address [address] [place] [address] Care Team Providers Care Hha Name Role Phone No, Physician Primary Care Provider [phone] Allergies No known active allergies Medications 25/IRON [...] on file Legal Sex Female 12:32 PM OPTIMIZATION MANAGER Gender Identity Female 05/17/2024 6:21 PM OPTIMIZATION MANAGER Sexual Orientation Straight 05/17/2024 6: 21 PM OPTIMIZATION MANAGER Obstetrics History Para Term AB IAB SAB [...] KIM campuzano, Lilian Lorenzo MD Complications:None Delivery Location:[facility] Last Filed Vital Signs Vital Sign Reading Time Taken Comments Blood Pressure 100/68 05/17/2024 7:33 PM OPTIMIZATION MANAGER Pulse 86 05/17/2024 7:33 PM OPTIMIZATION MANAGER Temperature 36.8 C (98.2 F) 05/17/2024 7:33 PM OPTIMIZATION MANAGER Respiratory Rate 18 05/17/2024 7:33 PM OPTIMIZATION MANAGER Oxygen Saturation 98% 05/17/2024 7:33 PM OPTIMIZATION MANAGER Inhaled Oxygen Concentration - - Weight 54.4 kg (120 lb) 05/17/2024 7:33 PM OPTIMIZATION MANAGER Height 160 cm (5' 3) 05/17/2024 7:33 PM OPTIMIZATION MANAGER Body Mass Index 21.26 05/17/2024 7:33 PM OPTIMIZATION MANAGER Plan of Treatment Health Maintenance Due Date [...] HISTORICAL RESULTS - 11/03/2013 2:49 PM CDT #[id number] [facility] DOA, Varicella IgG, Obstetric Panel us Aury Ny MD LAB BLOOD ORDERABLES Final Result HISTORICAL RESULTS from Last 3 Months or Most Recently Relevant to Health Maintenance Advance Directives For more information, please contact: [phone] * Full Code (Latest Code Status on File) Date Activated Date Inactivated Comments 09/06/2017 11:24 AM 09/08/2017 3:22 PM Full CPR in case of cardiopulmonary arrest Care Teams Hha Relationship Specialty Start Date End Date No, Physician PCP - General 09/06/17
--- OUTSIDE RECORDS SUMMARY | 2025-03-13 12:55 | XMS_ITS | Clinical Summary ---
Author Organization [facility] Address [address] [place] [address] Care Team Providers Care Grocery Team Member Name Role Phone Unavailable Primary Care Provider Unavailabl e Source Comments [facility],non-owned Affiliates and Associated Physician Practices is amultiple site organization consisting of ambulatory clinics and hospital sitesin [place], [place], [place] and [place]. This disclosure is being madepursuant to the Care Everywhere program and may not contain all information available regarding this patient. 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 Accessory lobed placenta on outside scan Social History Tobacco Use Types Packs/Day Years Used Date Smoking Tobacco: Never Assessed Comments No Sex and Gender Information Value Date Recorded Sex Assigned at Female 06/25/2023 1:47 PM HEAD INSPECTOR Legal Sex Female 7:13 AM CDT Gender Identity Female 06/25/2023 1:47 PM HEAD INSPECTOR Sexual Orientation Straight 06/25/2023 1: 47 PM HEAD INSPECTOR Plan of Treatment Health Maintenance Due Date Last Done Comments HEPATITIS C SCREENING 06/11/2011 DTAP/TDAP/TD VACCINES (1 - Tdap) 2012 HEPATITIS B VACCINE (1 of 3 - 19+ 3-dose series) 2012 HPV VACCINE (1 - 3-dose SCDM series) 2020 DEPRESSION SCREENING 05/21/2024 COVID-19 VACCINE ( 2023-2 5 season) 2025 INFLUENZA VACCINE (#1) 2025 7, 03/03/2014 ZOSTER VACCINE (1 of 2) 2043 HIV SCREENING Completed 12/07/2020 HIB VACCINE Aged Out No longer eligi ble based on patient's age to complete this topic MENINGOCOCCAL (Group B) VACCINE SHARED DECISION-MAKING Aged Out No longer eligible based on patient's age to complete this topic MENINGOCOCCAL GROUPS A/C/Y/W VACCINE Aged Out No longer eligible b ased on patient's age to complete this topic PNEUMOCOCCAL VACCINE Aged Out No long er eligible based on patient's age to complete this topic Insurance MEDICAID - [place] UHC MANAGED MEDICARE ADV [facility] CIGNA [facility]
[2025-03-13 14:30] LABS: Total Protein Urine Random 13 mg/dL
[2025-03-13 14:32] LABS: Albumin Level 4.2 g/dL (3.5-5.1); Anion Gap 9 mmol/L (4-12); Blood Urea Nitrogen 8 mg/dL (7-17); Calcium 8.6 mg/dL (8.4-10.2); Carbon Dioxide 22 mmol/L (22-30); Chloride 105 mmol/L (98-107); Estimated Glomerular Filt Rate > 60; Glucose 92 mg/dL (65-110); Potassium 3.7 mmol/L (3.4-5.0); Sodium 136 mmol/L (137-145)
[2025-03-13 14:59] LABS: Add Urine Microscopic? YES; Appearance Urine Clear (Clear); Glucose Urine UA Negative (Negative); Leukocyte Esterase Ur Trace LEU/UL (Negative); Need Manual Microscopic Reviewed; Nitrate Urine Negative (Negative); Non Pathogenic Casts 0-2; Specific Grav Ur 1.002 (1.001-1.035)
[2025-03-13 15:11] LABS: Ur Ttl Prot Creatinine Ratio 1.59 mg/mg (0-0.20)
== END 2025-03-13 12:52 | disposition home or self-care (01) ==
LOC: ANHIMG 12:52
PROVIDERS: Visit Provider Internal Medicine Nephrology
DX: N26.1 Atrophy of kidney (terminal) (principal); R30.0 Dysuria
CPT/HCPCS: 36415; 76770; 80069; 81001; 82570; 84156